=== PATIENT | male | born 1995 | race Caucasian/White ===

== ENCOUNTER 2024-01-10 13:19 | Emergency (ER) | payer BC ==
[~2024-01-10] VITALS: Ht 182.9 cm; Wt 90.7 kg
[~2024-01-10 13:19] MED LIST: Percocet 10-321 EACH PO
[2024-01-10] MEDS ORDERED: Ketorolac Tromethamine 15mg Vial IV ONE (13:25)
[2024-01-10] MEDS ORDERED: FentaNYL Citrate 50 MCG/ML 2 ML Injection IV ONE (13:25)
[2024-01-10] MEDS ORDERED: Ondansetron HCl 2 MG / ML 2ML Vial IV ONE (13:35)
[2024-01-10] MEDS ORDERED: Morphine Sulfate 4 MG/1 ML Injection IV ONE ×2 (13:35→14:30)
[2024-01-10] MEDS ORDERED: Propofol 10mg/ml 20 ml Vial (Procedural) IV SCH (14:00)
[2024-01-10] MEDS ORDERED: OXYACE7.5T PO (14:46)
[2024-01-10 15:35] VITALS: BP 144/89
== END 2024-01-10 15:38 | disposition home or self-care (01) ==
LOC: ER 13:19
DX: S93.04XA Dislocation of right ankle joint, initial encounter (principal); X50.1XXA Overexertion from prolonged static or awkward postures, initial encounter; Z98.890 Other specified postprocedural states; Z88.0 Allergy status to penicillin
CPT/HCPCS: 27840; 73600; 73610; 96374-59; 96375-59; 99152; 99283-25; J2270; J2405; J2704